=== PATIENT | male | born 1970 | race Caucasian/White ===

== ENCOUNTER 2017-08-22 06:10 | Day surgery (SDC) | payer OTHER ==
[~2017-08-22] VITALS: Ht 180.3 cm; Wt 100.9 kg
[2017-08-22] MEDS ORDERED: POVIDONE IODINE 5% (ANTISEPSIS KIT) 4 APPLICATIONS EACH NARE PRN (06:45)
[2017-08-22] MEDS ORDERED: ceFAZolin 2 GM PREMIX 50 ML IV SCH (06:45)
[2017-08-22] MEDS ORDERED: LACTATED RINGER'S 1000 ML IV PRN (06:45)
[2017-08-22] MEDS ORDERED: SODIUM CHLORID 0.9% 500 ML IV PRN (06:45)
[2017-08-22] MEDS ORDERED: CHLORHEXIDINE GLUCONATE 2 % 1 PACK (2 CLOTHS) TOPICAL PRN (06:45)
[2017-08-22] MEDS ORDERED: ACETAMINOPHEN 1000 MG/100 ML 100 ML IV SCH (06:45)
[2017-08-22] MEDS ORDERED: METOPROLOL TARTRATE 25 MG TAB PO PRN (06:45)
[2017-08-22] MEDS ORDERED: BUPIVACAINE/EPINEPHRINE 0.25% PF 30 ML VIAL ONE (07:33)
[2017-08-22] MEDS ORDERED: SODIUM CHLORIDE 0.9% 20 ML VIAL ONE (09:58)
[2017-08-22] MEDS ORDERED: DO NOT ADM ANY ANTICOAGULANT DRUGS PRN (10:28)
--- NOTE | 2017-08-22 10:38 | PD.OP ---
cc: Francois Gaviria MD Operative Report Date of Surgery: Aug 22, 2017 Preoperative Diagnosis: (1) Ventral hernia Postoperative Diagnosis: (1) Epigastric hernia Procedure: Laparoscopic repair of 3x3 cm epigastric hernia with mesh Anesthesia: LES Surgeon: Francois Gaviria Acid Dumper(s): Staff Operation and Findings: EBL: 10 cc Operative findings: The patient had a 3x3 cm epigastric hernia incarcerated with preperitoneal fat and a portion of the falciform ligament. Procedure in detail: The patient was taken to the operating room and placed in supine position. Gen. endotracheal anesthesia was induced. The abdomen was prepped and draped in usual sterile fashion and a surgical timeout was performed to verify correct patient procedure and site. Appropriate perioperative antibiotics were administered. In the left upper abdomen a 10 mm incision was made after infiltration with local anesthetic. Blunt dissection was carried out to the underlying fascia which was visualized and sharply incised. The peritoneum was visualized, grasped, and elevated and then sharply cut with Metzenbaum scissors. The GelPort 10 mm balloon trocar was inserted. The abdomen was insufflated to 15 mmHg which the patient tolerated well. A 5 mm port was placed in the left lower abdomen, right lower abdomen, and right upper abdomen all under laparoscopic visualization and after infiltration with local anesthetic.. Attention was turned to the upper abdomen. There was an obvious epigastric hernia approximately 3 cm in diameter. Peritoneum surrounding the hernia was incised with Harmonic scalpel and fatty tissue removed from approximately the umbilicus, laterally to the edge of the rectus muscles and superiorly including a portion of the falciform ligament. Preperitoneal fat was reduced from the hernia defect as well as the hernia sac itself. The estimated size of the hernia defect is 3 cm in diameter and it is about 1 cm to the left of midline. A size 15 x 15 cm piece of ventral light ST mesh on the echo deployment system was chosen. The mesh was saturated with saline, rolled on the device, and placed through the 10 mm port into the abdomen. Local anesthetic was injected just superior to the hernia and a small skin fercho created. The [employer] suture passer was used to enter the abdomen and grasp the blue catheter which was brought out of the abdomen. The syringe was placed on the catheter and the deployment system inflated with air. Is brought up to the anterior abdominal wall and slightly more peritoneum and preperitoneal fat was removed from the right upper portion of the dissection. Abdominal pressure was brought down to 11 mmHg. Next, the Capsure tacker was used to place tacks at 4 corners of the deployment device. The green skeleton of the device was then removed. Tacks were placed circumferentially around the mesh as well as throughout the midportion of the mesh. It was taut against the abdominal wall with wide coverage of the hernia defect. A portion of the fatty tissue superiorly was used to cover the superior portion of the mesh and tacked in place. The hernia sac and incarcerated fat was removed from the abdomen using an Endo Catch bag. At this point the abdomen was allowed to desufflate and trochars were removed. The fascia of the left upper quadrant incision was closed in 2 layers with 0 Vicryl suture. The skin was closed with subcuticular 4-0 Monocryl suture as well as Dermabond. An abdominal binder was placed. The patient tolerated the procedure well was extubated and taken to PACU in stable condition. Francois Gaviria MD Aug 22, 2017 10:38
[2017-08-22] MEDS ORDERED: OXYC1TAB63 PO (10:39)
[2017-08-22] MEDS ORDERED: MIDAZOLAM HCL 2 MG/2 ML VIAL ONE (10:41)
[2017-08-22] MEDS ORDERED: *morphine SULFATE 8 MG/ML PERIprocedure ONLY ONE (11:05)
[2017-08-22] MEDS ORDERED: *RESP: ALBUTEROL 2.5 MG/3 ML NEB (PRN) PERIprocedural Use ONLY NEB ONE (11:43)
[2017-08-22] MEDS ORDERED: PROPOFOL 200 MG/20 ML AMP IV ONE (12:00)
[2017-08-22] MEDS ORDERED: ONDANSETRON HCL 4 MG/2 ML VIAL IV PUSH PRN (12:00)
[2017-08-22] MEDS ORDERED: ROCURONIUM INJ 50 MG/5 ML SYRINGE IV PUSH ONE (12:00)
[2017-08-22] MEDS ORDERED: oxyCODONE/ACETAMINOPHEN 5 MG/325 MG TAB PO PRN ×2 (12:00)
[2017-08-22] MEDS ORDERED: NEOSTIGMINE 5 MG/5 ML SYRINGE IV PUSH ONE (12:00)
[2017-08-22] MEDS ORDERED: KETOROLAC TROMETHAMINE 30 MG/ML (IVP) VIAL IV PUSH ONE (12:00)
[2017-08-22] MEDS ORDERED: GLYCOPYRROLATE 1 MG/5 ML SYRINGE IV PUSH ONE (12:00)
[2017-08-22] MEDS ORDERED: ONDANSETRON HCL 4 MG/2 ML VIAL IV PUSH ONE (12:00)
[2017-08-22] MEDS ORDERED: SODIUM CHLORIDE 0.9% 20 ML VIAL IV ONE (12:00)
[2017-08-22] MEDS ORDERED: LIDOCAINE HCL 1% PF 5 ML SYRINGE OTHER ONE (12:00)
[2017-08-22] MEDS ORDERED: DEXAMETHASONE SOD PHOS 4 MG/ML VIAL IV ONE (12:00)
[2017-08-22 13:45] VITALS: BP 140/83; PULSE 93; RESP 18; TEMP 97.8; O2SAT 97
[2017-08-22] MEDS ORDERED: MORPHINE SULFATE 2 MG/ML INJ IV PRN ×2 (14:00)
== END 2017-08-22 14:35 | disposition home or self-care (01) ==
LOC: UNDOADMIN 06:10 → HSDC 06:10 → HSDI 06:10 → EDSTATUS 08:00 → HSDC 14:35
PROVIDERS: ATTEND Surgery
DX: K43.9 Ventral hernia without obstruction or gangrene (principal)
CPT/HCPCS: 00752; 49652; C1781; J0131; J0690; J1100; J1885; J2250; J2270; J2405; J2710; J3010; J7120; J7613; C1730; C1731; C1732; C1759; C1766; C2630